=== PATIENT | male | born 1980 | race African-American/Black ===

== ENCOUNTER 2025-04-06 06:36 | Emergency (ER) | payer MEDICAID, OTHER ==
[~2025-04-06] VITALS: Ht 193 cm; Wt 128.4 kg
[2025-04-06 07:46] LABS: PLATELET COUNT (AUTO) 237 K/uL (152-348); RED BLOOD CELL COUNT(AUTO) 5.12 MIL/uL (4.06-5.63); RED CELL DISTRIBUTION WIDTH 14.8 % (12.1-16.2); WHITE BLOOD COUNT (AUTO) 4.1 K/uL (3.6-10.2)
[2025-04-06 07:57] LABS: CREATININE 1.3 mg/dL (0.6-1.3); SODIUM SERUM 142.0 mmol/L (136-145); UREA NITROGEN, BLOOD 19.0 mg/dL (7-18)
[2025-04-06 08:02] LABS: ASPARTATE AMINOTRANSFERASE 25.0 U/L (15-37); TOTAL PROTEIN, SERUM 7.5 g/dL (6.4-8.2)
[2025-04-06] MEDS ORDERED: IBUP-1955 PO (08:23)
[2025-04-06] MEDS ORDERED: SULF1TAB48 PO (08:23)
[2025-04-06 08:49] VITALS: BP 135/89; O2SAT 97
== END 2025-04-06 08:55 | disposition home or self-care (01) ==
LOC: ER 06:51
DX: L02.821 Furuncle of head [any part, except face] (principal); R51.9 Headache, unspecified; R11.0 Nausea; F17.210 Nicotine dependence, cigarettes, uncomplicated
CPT/HCPCS: 36415; 85025; 85651; 86140; A4606; A4663